=== PATIENT | female | born 1965 | race Caucasian/White ===

== ENCOUNTER → 2017-08-02 | Emergency (ER) | payer OTHER ==
[~2017-08-02] VITALS: Ht 162.6 cm; Wt 56.7 kg
== END | disposition left against medical advice (07) ==
LOC: ER 13:36
DX: Z53.20 Procedure and treatment not carried out because of patient's decision for unspecified reasons (principal)

== ENCOUNTER → 2019-12-26 | Outpatient (CLI) | payer OTHER | END | disposition home or self-care (01) | LOC: SONOGRAMA 11:22 | PROVIDERS: ATTEND Physical Medicine & Rehabilitation | DX: M25.551 Pain in right hip (principal) ==

== ENCOUNTER 2020-01-08 12:08 | Outpatient (CLI) | payer OTHER | END 2020-01-08 12:26 | disposition home or self-care (01) | LOC: SONOGRAMA 12:08 | PROVIDERS: ATTEND Pathology Anatomic Pathology & Clinical Pathology | DX: R22.41 Localized swelling, mass and lump, right lower limb (principal) ==

== ENCOUNTER 2020-03-03 14:31 | Emergency (ER) | payer OTHER ==
[~2020-03-03] VITALS: Ht 162.6 cm; Wt 54.0 kg
== END 2020-03-03 17:01 | disposition home or self-care (01) ==
LOC: ER 14:31
DX: D17.79 Benign lipomatous neoplasm of other sites (principal); M79.651 Pain in right thigh

== ENCOUNTER 2020-03-22 11:20 | Outpatient (CLI) | payer OTHER | END 2020-03-22 12:00 | disposition home or self-care (01) | LOC: MRI 11:20 | PROVIDERS: ATTEND Physical Medicine & Rehabilitation | DX: D17.23 Benign lipomatous neoplasm of skin and subcutaneous tissue of right leg (principal); M79.651 Pain in right thigh | CPT/HCPCS: 73721 ==

== ENCOUNTER 2020-05-14 08:33 | Outpatient (CLI) | payer OTHER | END 2020-05-14 08:58 | disposition HB | LOC: RAD 08:33 | DX: M25.551 Pain in right hip (principal); M25.552 Pain in left hip ==

== ENCOUNTER 2020-10-12 15:33 | Outpatient (CLI) | payer OTHER | END 2020-10-12 16:00 | disposition home or self-care (01) | LOC: MAMO-SONO 15:33 | DX: N64.59 Other signs and symptoms in breast (principal); N64.4 Mastodynia; Z12.31 Encounter for screening mammogram for malignant neoplasm of breast; Z87.898 Personal history of other specified conditions ==

== ENCOUNTER 2021-01-14 09:00 | Outpatient (CLI) | payer OTHER | END 2021-01-14 09:30 | disposition home or self-care (01) | LOC: PPH VACUNA 09:00 | PROVIDERS: ATTEND Emergency Medicine Pediatric Emergency Medicine | DX: Z23 Encounter for immunization (principal) ==